=== PATIENT | female | born 1990 | race Hispanic/Latino ===

== ENCOUNTER → 2025-07-23 10:03 | Outpatient (REF) | payer OTHER, SELFPAY | LOC: WDC 10:03 | PROVIDERS: ATTENDING PHYSICIAN Obstetrics & Gynecology; FAMILY PHYSICIAN Internal Medicine | DX: N64.4 Mastodynia (principal) | CPT/HCPCS: 76642; 77062; 77066 ==

== ENCOUNTER → 2025-11-19 13:17 | Outpatient (REF) | payer OTHER, SELFPAY | LOC: PNTC 13:17 | PROVIDERS: ATTENDING PHYSICIAN Obstetrics & Gynecology | DX: Z34.91 Encounter for supervision of normal pregnancy, unspecified, first trimester (principal) | CPT/HCPCS: 76801 ==